=== PATIENT | female | born 1990 | race Caucasian/White ===

== ENCOUNTER 2016-07-09 20:04 | Emergency (ER) | payer OTHER ==
[~2016-07-09] VITALS: Ht 170.2 cm; Wt 109.1 kg
[2016-07-09 20:15] VITALS: BP 124/84; PULSE 123; RESP 20; O2SAT 97
--- NOTE | 2016-07-09 22:15 | ED.REPORT ---
HPI- Female Date of Service Jul 09, 2016 ED Provider: Dr. Daniel Pt is a 27 week 26 y/o female w/ a hx of A1, Bartholin's cyst, presenting to the ED c/o worsening left labial pain secondary to Bartholin's cyst onset 2 days ago. She was cleared at the [facility] prior to arrival to the ED. She denies vaginal bleeding, abdominal pain, N/V/D, fever, chills. Her has been uncomplicated thus far. Nursing Notes Stated Complaint: VAGINAL PAIN Chief Complaint: Skin Rash/Abscess Nursing Notes Reviewed: Yes Allergies: Coded Allergies: methocarbamol (Verified Allergy, Intermediate, Rash,Itching,SOB, 07/09/16) No Active Prescriptions or Reported Meds General Time Seen by MD: 22:15 Chief Complaint Pelvic pain Hx Obtained From: Patient Arrived By: Walk-in Sudden in Onset?: No Onset Occurred: 2 days ago Symptom Duration: Since onset Location: : Vulva left Quality: Painful Radiation: Does not radiate Severity: Current: Severe Severity: Maximum: Severe : 4 Para: 2 Abortions: 1 Similar Sx Previous: Yes Past Medical History Past Medical History Ab1 bartholin's cyst substance abuse Reports: Diabetes mellitus Past Surgical History Breast reduction Smoking History Current Every Day Smoker Social History Alcohol Use: "Social" Drug Use: Meth Other Social History: Good social support Ambulatory Status Independent Review of Systems Constitutional: Denies: Chills, Fever GI: Denies: Abdominal pain, Nausea, Vomiting Female: Reports: Pelvic pain, , Denies: Dysuria, Vaginal bleeding - abnl Musculoskeletal: Denies: Back pain, Extremity pain Complete sys rev & neg: except as marked. Physical Exam Initial Vital Signs Vital Signs (First) Date Time Temp Pulse Resp B/P Pulse Ox O2 Delivery O2 Flow Rate FiO2 07/09/16 20:15 36.0 123 20 124/84 97 Room Air Initial VS: Reviewed Head / Eyes: Atraumatic, Normocephalic, PERRL ENT: Mucous membranes moist, Conjunctiva normal, No scleral icterus Neck: Supple, Full range of motion Respiratory: Breath sounds normal, Clear to auscultation, No respiratory distress Abdomen / GI: Soft, Non-tender, No guarding, No rebound, No distention Extremities: Vascular intact, Neuro intact, No swelling, No tenderness Skin: Warm, Dry, No cyanosis Neurologic: Alert, Oriented, Nonfocal Psychiatric: Mood/affect normal, Behavior normal, Normal thought content Female Genitourinary: Warehouse Clerk present, Atraumatic Large left Bartholin's labial cyst 3x4 inches, very tender to touch Cardiovascular: Regular rhythm, Heart sounds NL, No gallop, No murmurs, No rubs , Cap refill not delayed, Peripheral circulation NL Heart Rate / Rhythm: Positive: Tachycardia Interpretation & Diagnostics Lab Results Interpretation Test 07/09/16 22:46 Hold Purple Top Tube Received (Received) Hold Blue Top Tube Received (Received) Hold Mobile Top Tube Received (Received) Hold Rasheed Top Tube Received (Received) Procedures Incision & Drainage Abscess I & D Abscess: She would not tolerate packing placement Time: 11:20 Procedure Performed by: ED physician Consent / Setup / Site Prep: Consent from patient, Time-out performed, Hand hygiene observed, Stand sterile technique, Sterile drapes applied Location of Abscess: Left labia Skin Preparation Agent: Shurclens Local Anesthesia: Lidocaine 1% Procedural Sedation/Analgesia: Analgesia: Dilaudid Pus Drained: Large (30 ccs), Purulent discharge Irrigation: Yes, Copious Post-Procedure / Complications: Dressing applied, No complications, Condition improved, Tolerated procedure well, Patient stable Re-Eval/Medical Decision Med Decision/Clinical Course I initially consulted with her sheep farm worker client relations associate. She told me that our anesthesiologist will not do a sedation for this procedure area there would recommend transfer her to [place] for this. I discussed this with Ciera. She wanted nothing to do with that. She opted to have the abscess drained under local anesthesia which is what OB recommended anyways. I perform this without any difficulty whatsoever. A large amount of pus drained after which Ciera is completely pain-free. She did not however allow me to place a packing. I counseled again with OB. She recommends Tuesday follow-up. No antibiotics. Evidently Ciera started been up at labor and delivery and was evaluated. OB did not recommend that she comes back up rather they recommended that I discharge her. Source of Hx: Old records Re-Evaluation/Progress #1: Time of Eval: 22:45 Re-Evaluation/Progress Note: She consents to I&D in the ED today. Re-Evaluation/Progress #2: Time of Eval: 23:25 Re-Evaluation/Progress Note: Pt rechecked. Informed pt of plan for treatment. Pt understands and agrees with plan for treatment. F/U and RTER warnings given. All questions addressed. Consultation : Referral / Consult Name: Melly Underwood MD Call Returned at: 22:30 Transformer Mechanic: Agrees with eval, Agrees with plan Note: Consulted OPTOMETRIST OWNER. He states that our anesthesiologist's have made it apparent to her that they would recommend her to go to [place] to be sedated. 11:23 - Agrees with plan for dc NOT on abx. Recommends pain meds. Counseled Regarding: Diagnosis, Lab results, Need for follow-up, When/why to return to ED Discharge & Departure Impression: Primary Impression: Labial abscess Additional Impression: Bartholin cyst Disposition: Home Discharge Condition All VS Reviewed: Yes Condition: Stable Patient Instructions: Excision of a Bartholin's Cyst (ED) Additional Instructions: Warm soaks if intolerable helps keep the abscess draining. You may take one [place] every 6 hours as needed for severe pain. I would like this to be followed up with on Tuesday by your computer applications instructor. Return to the emergency department if you have any problems or any worsening symptoms. Return if you have any signs or symptoms consistent with labor. Do not drive or drink alcohol or consume acetaminophen tonight or while while taking the [place]. Do not hesitate to return for any problems or any worsening symptoms. Referrals: [facility] (PCP) Rafiq Ramos DPM Attestation Portions of this note were transcribed by Tano Jacobs. I, Dr. Daniel personally performed the history, physical exam and medical decision-making; I reviewed and confirmed the accuracy of the information in the transcribed note. Signed by Brian Diaz, 07/09/16 - [id number] copies to: [facility]; Rafiq Ramos DPM, Todd P DO Jul 09, 2016 22:15 TANO JACOBS Jul 09, 2016 22:49
[2016-07-09] MEDS: HYDROmorphone 0.5 mg/0.5 mL iSecure Syringe IVPUSH PRN ×2 (22:51→23:15)
[2016-07-09] MEDS ORDERED: _HYDROcodone/APAP 5-325 mg Tablet PO PRN (23:25)
[2016-07-09 23:56] VITALS: BP 122/78; PULSE 99; RESP 18; O2SAT 98
== END 2016-07-09 23:57 | disposition home or self-care (01) ==
LOC: SED 20:04
DX: O34.82 Maternal care for other abnormalities of pelvic organs, second trimester (principal); N76.4 Abscess of vulva; N75.0 Cyst of Bartholin's gland; O99.332 Smoking (tobacco) complicating pregnancy, second trimester; Z3A.27 27 weeks gestation of pregnancy; Z88.8 Allergy status to other drugs, medicaments and biological substances
CPT/HCPCS: 56420; 96374; 96376; 99284; J1170

== ENCOUNTER 2016-07-15 01:43 | Emergency (ER) | payer OTHER ==
[2016-07-15 01:47] VITALS: BP 92/65; PULSE 121; RESP 16; O2SAT 97
[2016-07-15] MEDS ORDERED: cefTRIAXone Inj 1,000 MG, Lidocaine PF 1% Inj 2.1 ML in Syringe 0 EACH IM ONE (02:20)
[2016-07-15] MEDS ORDERED: HYDROmorphone 1 mg/mL Inj IM ONE (02:20)
--- NOTE | 2016-07-15 02:29 | ED.REPORT ---
HPI- Female Date of Service Jul 15, 2016 ED Provider: Alen Patel MD A 28 week 26 year old female with a history of bartholin cyst and substance abuse presents to the ED complaining of severe right flank back pain. Per nurse note, patient reports dysuria and last used meth 2 days ago. Nursing Notes Stated Complaint: POSS UTI Chief Complaint: Female Abdominal Pain Nursing Notes Reviewed: Yes Allergies: Coded Allergies: methocarbamol (Verified Allergy, Intermediate, Rash,Itching,SOB, 07/15/16) No Active Prescriptions or Reported Meds General Time Seen by MD: 01:54 Chief Complaint Flank pain right Hx Obtained From: Patient Arrived By: Walk-in Sudden in Onset?: Yes Onset Occurred: Onset unknown (within last few days) Symptom Duration: Since onset Severity: Current: Severe Severity: Maximum: Severe Recent Healthcare: Recent doctor visit Similar Sx Previous: No Past Medical History Past Medical History Ab1 bartholin's cyst substance abuse Patient was seen in ED on 07/09/2016 for left labial pain secondary to Bartholin's cyst. Reports: Diabetes mellitus (gestational) Past Surgical History Breast reduction. Bartholin cyst surgery. Smoking History Current Every Day Smoker Social History Patient is in [facility]. Patient last used IV drugs 18 months ago. Patient denies heroin use. Alcohol Use: "Social" Drug Use: Meth Other Social History: Good social support Ambulatory Status Independent Review of Systems Constitutional: Denies: Chills Female: Reports: Dysuria, Musculoskeletal: Reports: Back pain (right flank) Complete sys rev & neg: except as marked. Physical Exam Physical Exam Notes: Initial Vital Signs Vital Signs (First) Date Time Temp Pulse Resp B/P Pulse Ox O2 Delivery O2 Flow Rate FiO2 07/15/16 01:47 36.6 121 16 92/65 97 Initial VS: Reviewed, Vital signs abnormal Female Genitourinary: Exam deferred General/Constitutional: Awake, Alert Patient is screaming and crying. Respiratory / Chest: Atraumatic, Breath sounds NL, Breath sounds = bilat, No respiratory distress, No rales, No rhonchi, No wheezing Cardiovascular: Regular rhythm, Heart sounds NL, No gallop, No murmurs, No rubs Heart Rate / Rhythm: Positive: Tachycardia Abdomen: Soft, Non-tender Right sided CVA tenderness, extreme. Skin: Color NL, Warm, Dry Does not appear to have any active injection sites. Does appear to have some old scarring. Head / Eyes: Normocephalic, PERRL, EOMI ENT: Atraumatic, Airway patent Upper Extremity / MS: No swelling, No edema Neurologic: Oriented X3, Speech NL Re-Eval/Medical Decision Med Decision/Clinical Course Any 6-year-old female at about 5 months . She is a methamphetamine abuser. She complains of left flank pain and her urine shows a urinary tract infection. She has very limited IV access so requested IM medications. She was given Dilaudid 2 mg IM to be followed by Rocephin 2 g IV M but she refused the latter medication. She was given Keflex by mouth prepack and discharged home. She will follow up with her primary doctor. Source of Hx: Old records Re-Evaluation/Progress : Time of Eval: 02:17 Re-Evaluation/Progress Note: Rechecked patient. Explained plan to administer pain medication and antibiotics. Explained plan for discharge. Patient understands and agrees with the plan. Counseled Regarding: Diagnosis, Lab results, Need for follow-up, When/why to return to ED Discharge & Departure Impression: Primary Impression: UTI (urinary tract infection) Additional Impressions: Methamphetamine abuse Disposition: Home Discharge Condition All VS Reviewed: Yes Condition: No Change Patient Instructions: Urinary Tract Infection in Women (ED) Additional Instructions: Cephalexin 500 mg 3 times a day, #30 dispensed. Plenty fluids and primary juice. Follow-up with your regular doctor in a day or 2 for reevaluation. Do not use methamphetamine. Follow up as planned with [facility]. Referrals: [facility] (PCP) Brian Attestation Portions of this note were transcribed by Cy Beebe. I, Dr. Patel personally performed the history, physical exam and medical decision-making; I reviewed and confirmed the accuracy of the information in the transcribed note. Signed by: Brian Carr, 07/15/2016 [id number]. copies to: [facility] Howard L MD Jul 15, 2016 02:29 Cy Beebe Jul 15, 2016 02:30
[2016-07-15] MEDS ORDERED: CeFAZolin Inj 2 GM in Dextrose 5%-Pha MIX 50 ML IV ONE (02:30)
[2016-07-15] MEDS ORDERED: cefTRIAXone Inj 2,000 MG, Lidocaine PF 1% Inj 4.2 ML in Syringe 0 EACH IM ONE (02:45)
[2016-07-15] MEDS ORDERED: _Cephalexin 500 mg Capsule PO SCH (08:30)
== END 2016-07-15 03:15 | disposition home or self-care (01) ==
LOC: SED 01:43
DX: O23.43 Unspecified infection of urinary tract in pregnancy, third trimester (principal); O99.323 Drug use complicating pregnancy, third trimester; F15.10 Other stimulant abuse, uncomplicated; F17.200 Nicotine dependence, unspecified, uncomplicated; Z3A.28 28 weeks gestation of pregnancy; Z86.32 Personal history of gestational diabetes; Z87.42 Personal history of other diseases of the female genital tract; Z88.8 Allergy status to other drugs, medicaments and biological substances
CPT/HCPCS: 96372; 99283; J1170

== ENCOUNTER 2016-09-26 17:29 | Inpatient (IN) | payer OTHER ==
[~2016-09-26] VITALS: Ht 170.2 cm; Wt 124.7 kg
--- NOTE | 2016-09-26 20:27 | DRSVH ---
PROCEDURE: US OB BIOPHYSICAL PROFILE AND UMBILICAL DOPPLER INDICATIONS: LIMITED CARE HIGH RISK OUTSIDE/PRIOR DATING DATA: Last menstrual period (LMP): Unknown. LMP-based estimated date of delivery (KIMANI): Unknown. First dating scan (date and location): 03/14/16. Estimated date of delivery (KIMANI) from first dating scan: 10/05/16. TECHNIQUE: Real-time scanning was performed of the fetus for biophysical profile, with image documentation. Col or and pulse Doppler interrogation was also performed of the umbilical artery near its insertion into the placenta. Endovaginal scanning: Not performed COMPARISON: None. FINDINGS: General: A single living intrauterine gestation is present. Presentation: Vertex. Placenta: Placental position is anterior, without previa. Amniotic fluid index: 9.3 cm, normal range is 5-24 cm. heart rate: 145 beats per minute. Estimated gestational age from initial scan: 30 weeks 5 days. Biophysical profile: Tone: 2 points. Movement: 2 points. Respiration: 2 points. Largest pocket of fluid: 2 points. 6.78 cm Umbilical artery Doppler: 1.74, 2.07, 1.67, within normal limits. chest, diaphragm, stomach and kidneys, urinary bladder are unremarkable IMPRESSION: Single living intrauterine fetus in vertex presentation. Normal ESAU. Normal biophysical profile. Normal cord Doppler examination. Dictated by: Derek Michel M.D. on 09/26/2016 at 20:18 Approved by: Derek Michel M.D. on 09/26/2016 at 20:25
[2016-09-26] MEDS ORDERED: Lactated Ringer's 1,000 ML IV PRN (22:04)
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
[2016-09-26] MEDS ORDERED: Oxytocin 30 Units/500 mL LR 30 UNITS in IV Premix 1 EACH IV PRN ×2 (22:05→23:45)
[2016-09-26] MEDS ORDERED: Sodium Chloride LOK Flush 10 mL Syringe IVFLUSH PRN (22:05)
[2016-09-26] MEDS ORDERED: Hemorrhage Kit, Post Partum XX ONE (22:05)
[2016-09-26] MEDS ORDERED: Ondansetron 2 mg/mL 2 mL Inj IVPUSH PRN (22:05)
[2016-09-26] MEDS ORDERED: Oxytocin 10 Unit/mL Inj IM PRN (22:05)
[2016-09-26] MEDS ORDERED: Penicillin G K Inj 5,000,000 UNITS in Dextrose 5% Minibag Plus 100 ML IV ONE (22:05)
[2016-09-26] MEDS ORDERED: Carboprost 250 mCg/mL Inj IM PRN (22:05)
[2016-09-26] MEDS ORDERED: fentaNYL-PF 50 mCg/mL 2 mL Inj IVPUSH PRN (22:05)
[2016-09-26] MEDS ORDERED: Methylergonovine 0.2 mg/mL Inj IM PRN (22:05)
[2016-09-26] MEDS ORDERED: Penicillin G K 5,000,000 Units Inj ONE (22:06)
[2016-09-26] MEDS ORDERED: DEXTROSE 5% IV ONE (22:08)
--- NOTE | 2016-09-27 00:23 | PCM.PNOBIP ---
Subjective Date of Service Sep 27, 2016 Subjective increasing pelvic pressure. Gastrointestinal: Good Appetite, No N/V Group B Strep Results: Positive Rubella: Non-Immune Blood Type: A Labs Laboratory Tests 09/26/16 22:06: Hold Purple Top Tube Received Exam Vital Signs Vital Signs Contraction frequency in minutes: MVUs: Vital Signs: VS reviewed, stable Heart Tracings Heart Tones Baseline 140 bpm Heart Rate Variability: Moderate Heart Rate Accelleration: Present Heart Rate Deceleration: Absent Heart Rate Category: I Tocometry/IUPC Contraction frequency in minutes: MVUs: Sterile Vaginal Exam Cervical Dilation: 6 cms Cervical Effacement: 60 % Station: -3 Exam Heart: Normal S1 General: Alert, Oriented X3 OB Intrapartum Assessment/Plan Assessment 26 Y at 38 w6d with KIMANI 10/05/16 by 10 w5d US. Active labor will start augmentaion and epidural. Ultrasound by [facility]: 09/15/16: EFW 3329 at 75%ile , AC 97%ile. Previous pregnancies records requested, pending. complicated with: 1. Limited/Late care , one care visit at 35 weeks. 2. Drug abuse: Amphetamine Last use ~ 2 months ago, Sharpi pen ink one pen per day. UDS positive for amphetamine 07/15, 08/25, 09/06. UDS negative 07/18, 09/08, , 09/13, 09/26. 3. Obesity BMI 43 4. H/O DM in previous , 1 hr DM screen WNL at 35 week. 5. H/O [place] in previous , induced at term. 6. Epilepsy , last seizure 2013, no meds. 7. Smoker 0.5-1 PPD. 8. Desires permanent sterilization consent was signed 09/03/16 (at 35 w3d) 9. Chlamydia positive at 35 weeks, treated 09/11/16, no current partner involve. Health department contacted previous partner. 10.Sister with scoliosis and brain aneurysm. Anatomy scan by [facility] limited at 37 weeks, WNL. 11. recurrent bartholin cyst. 12. No custody of any of her kids. 13. Rubella non-immune. 14. Poor historian. Dawson Aparicio MD Sep 27, 2016 00:23
[2016-09-27] MEDS ORDERED: Lactated Ringer's 500 ML IV ONE (00:24)
[2016-09-27] MEDS ORDERED: Atropine 1 mg/10 mL (Code) Syringe IVPUSH PRN (00:25)
[2016-09-27] MEDS ORDERED: fentaNYL 2 mCg/mL-Bupiv 0.125% 100 ML EPIDURAL SCH (00:25)
[2016-09-27] MEDS ORDERED: EPHEDrine Sulfate 50 mg/mL Inj IVPUSH PRN (00:25)
[2016-09-27] MEDS ORDERED: Ondansetron 2 mg/mL 2 mL Inj IVPUSH PRN (00:25)
--- NOTE | 2016-09-27 01:17 | PCM.HPANE ---
Patient Data Surgeon Admitting Provider:Dawson Aparicio MD Attending Provider:Dawson Aparicio MD Primary Care Physician:[facility] Other Provider: Reason for Visit Term Labor TERM LABOR Ht/WT & BMI Body Mass Index Allergies Coded Allergies: methocarbamol (Verified Allergy, Intermediate, Rash,Itching,SOB, 07/15/16) Past Anesthesia History Anesthesia History: Denies:: Abnormal Airway, Anesthesia Reactions, Difficult Intubation, Fam Anesthesia Reaction, Fam Malignant Hypertherm, Malignant Hyperthermia Diabetes History Hx Diabetes?: Yes (gestational ) Medications Hypertension Medication: No Home Meds Incl Beta Iris: No No Active Prescriptions or Reported Meds History History of ENT Problems?: No HEENT History: Denies:: Abnormal Airway Cataracts Difficult Intubation Dysphagia Glaucoma Hearing Problem Sinus Problem TMJ Denture Type: None Teeth Condition: Within Normal Limits Hx of Heart Problems?: No Cardiovascular History: Denies:: AICD Abdominal Aortic Aneurism Atrial Fibrillation Cardiac Surgery Chest Pain Congestive Heart Failure Coronary Artery Disease Edema Heart Murmur Hypertension Irregular Heartbeat Pacemaker Peripheral Vascular Rheumatic Fever Thrombophlebitis Valvular Heart Disease Hx of Respiratory Problem?: Yes Respiratory History: Positive for:: Asthma Denies:: Tuberculosis Hx Neurologic Problems?: Yes (history of back pain) Hx of GI Problems?: No Hx of Problems?: No Female Hx: Positive for:: Currently Hx Musculoskeletal Problems?: No Hx Surgeries?: Yes (breast reduction, barthlon cyst surgery ) Hx Diabetes: Yes (gestational ) Hx Alcohol Use: NoHx Substance Use: Yes (amphetamine ) Smoking Status: Current Every Day Smoker Have You Smoked inLast 12 mo: Yes Stop/Bang DAPHNEY Risk Assessment: Low Risk, <3 Yes Risk Assessment Category Category 1A: Patient has history of documented sleep apnea, and HAS NOT received any narcotic, sedative or anesthesia administration during this stay. Category 1B: Patient has history of documented sleep apnea, and HAS received any narcotic , sedative or anesthesia administration during this stay Category 2: Patient has SUSPECTED Obstructive Sleep Apnea, and HAS received any narcotic , sedative or anesthesia administration during this stay. Category 3: Patient has SUSPECTED Obstructive Sleep Apnea and HAS NOT received narcotic, sedative or anesthesia administration during this stay. Category 4: Outpatient in Procedural Areas with known sleep apnea or who screen positive for High Risk via the STOP/BANG questionnaire. Exam Exam General Appearance: Alert, Oriented X3 HEENT/AIRWAY: MP 2 Lungs: Clear to Auscultation, Normal Air Movement Heart: Normal S1 Meds/Labs/Diagnostics Admission Meds Current Medications Penicillin G Potassium/ Dextrose/Water (Pfizerpen Inj/ D5W Minibag Plus) 100 ml @ 240 mls/hr ONCE ONCE IV Last administered on 09/26/16 22:21; Start at 22:05; Stop 09/26/16 at 22:29; Status DC Nicotine (Nicoderm 21 mg/ 24 Hr Patch) 1 patch DAILY TOPICAL Last administered on 09/27/16 00:22; Start 09/26/16 at 22:15 Labs Test 09/26/16 22:06 Hold Purple Top Tube Received (Received) Plan Impression Patient chart reviewed, patient interviewed and anesthestic plan with risks, benefits, and alternatives discussed, and informed consent obtained. NPO per Anesth. Guidelines: Yes ASA Physical Status: ASA3 Severe Disease Anesthetic Plan: Epidural Bene/Risks/Altern/Consents: Yes HP Complete Prior to Induction: Yes Sal Carr MD Sep 27, 2016 00:26
[2016-09-27] MEDS: Lactated Ringer's 1,000 ML IV SCH ×8 (01:38→17:16)
[2016-09-27] MEDS: Penicillin G K Inj 3,000,000 UNITS in IV Premix 1 EACH IV SCH ×5 (02:14→18:30)
[2016-09-27 06:03] LABS: Mean Corpuscular Hemoglobin 24.9 pg (27.0-35.0); Mean Corpuscular Volume 78.1 fL (81-100)
[2016-09-27] MEDS: Sodium Chloride LOK Flush 10 mL Syringe IVFLUSH SCH ×4 (07:30→19:36)
[2016-09-27] MEDS ORDERED: LANOlin HPA 7 Gm Ointment TOPICAL PRN (09:20)
[2016-09-27] MEDS ORDERED: Hemorrhage Kit, Post Partum XX ONE (09:20)
[2016-09-27] MEDS ORDERED: Carboprost 250 mCg/mL Inj IM PRN (09:20)
[2016-09-27] MEDS ORDERED: Witch Hazel-Glycerin Pads TOPICAL PRN (09:20)
[2016-09-27] MEDS ORDERED: Methylergonovine 0.2 mg/mL Inj IM PRN (09:20)
[2016-09-27] MEDS ORDERED: oxyCODONE-Acetamin 5-325 mg Tablet PO PRN (09:20)
[2016-09-27] MEDS ORDERED: Oxytocin 10 Unit/mL Inj IM PRN (09:20)
[2016-09-27] MEDS ORDERED: Oxytocin 30 Units/500 mL LR 30 UNITS in IV Premix 1 EACH IV PRN (09:20)
[2016-09-27] MEDS ORDERED: Benzocaine (Dermoplast) 20% 60 Gm Spray TOPICAL PRN (09:20)
--- NOTE | 2016-09-27 10:36 | OP ---
[address] [address] OPERATIVE REPORT PATIENT: HARSH SERRANO : 1990 MR#: [id number] ADMIT: 09/26/2016 JOB ID: [id number] DATE OF SURGERY: 09/27/2016 PREOPERATIVE DIAGNOSIS(ES): 1. Intrauterine at 38 weeks and 6 days. 2. Spontaneous labor. 3. Limited and late care. 4. Drug abuse during the . 5. Obesity, BMI of 43. 6. Epilepsy. 7. A smoker. 8. Previous history of diabetes in a . 9. Previous history of preeclampsia in . 10. Chlamydia positive during current . 11. Rubella nonimmune. 12. Poor historian. 13. Initially desired permanent sterilization. Consent was signed on September 03, 2016, but when re-counseled during admission, the patient changed her mind and desires Mirena intrauterine device for control. POSTOPERATIVE DIAGNOSIS(ES): 1. Intrauterine at 38 weeks and 6 days. 2. Spontaneous labor. 3. Limited and late care. 4. Drug abuse during the . 5. Obesity, BMI of 43. 6. Epilepsy. 7. A smoker. 8. Previous history of diabetes in a . 9. Previous history of preeclampsia in . 10. Chlamydia positive during current . 11. Rubella nonimmune. 12. Poor historian. 13. Initially desired permanent sterilization. Consent was signed on September 03, 2016, but when re-counseled during admission, the patient changed her mind and desires Mirena intrauterine device for control. 14. Status post normal vaginal delivery. SURGEON: Dawson Aparicio MD COMPLICATIONS: None. OUTCOME: Male infant, 3825 g, Apgars 8 and 8 at one and five minutes, respectively. Clear amniotic fluid. No nuchal cords. Shoulders delivered without difficulty. Placenta delivered intact with three-vessel cord. PROCEDURE: This is a 26-year-old, 8 para 3-0-4-3, who presented in active labor. Cervix on admission was 1-2 cm, 60% effaced, -2. The patient progressed in labor spontaneously to 5 cm, 60%, and -3. Then, there was protracted labor. Cervix remained at 6 cm, 60% effaced and -3 for 4 hours. Pitocin was started for augmentation, then artificial rupture of membrane was performed when the cervix was 7 cm, 90% effaced. Approximately 1 hour later, the patient delivered a male infant in cephalic presentation, right occiput anterior position with no nuchal cord. Shoulders delivered without difficulty. The infant was placed on the maternal abdomen. Delayed cord clamping was performed after 1 minute. Cord segment was obtained for gases. Cord blood was obtained for typing. Placenta was delivered spontaneously intact with three-vessel cord. Fundal massage was performed. Pitocin was started before the delivery of the placenta. The perineum was examined. No lacerations. Fundus was firm. Bleeding was minimal at the end of the procedure. ESTIMATED BLOOD LOSS: 400 mL, and 800 mcg of Cytotec (misoprostol was placed rectally prophylactically for hemorrhage). INSTRUMENT, NEEDLE AND SPONGE COUNTS: All instrument, needle, and sponge were correct x2. Mother and infant recovering in the delivery room, and in stable condition. IDawson MD, was present and scrubbed for the entire procedure.
--- NOTE | 2016-09-27 10:47 | NUR ---
Social Work Note - Family Assessment Ciera Houston is a 26 yr old who delivered baby boy Darrell Neal today. FOB is Nakia June. Reason for ARCHITECTURAL INTERN consult: Pt has had three previous children - none of which are in her care. CPS was involved in her children's care planning. ARCHITECTURAL INTERN met with Ciera - Ciera states that she has a 9 yr old Yazan and a 7 yr old Abena who are living with their father. She also has an 18 month old Mac who was placed into care after he was born. She states she wants to parent this child. She states that she has not been recently working with CPS - has been working with [employer] - Parent-child assistance program who has been helping her get ready for baby at home. Pt's address is listed as in [place] - Pt states she is living with a friend in [place] - [place]. Pt states that [place] will let her stay there with the baby. CPS lists her as homeless. Substance use: Pt states that she used to do drugs - states that she stopped two months ago - UDS in clinic +Amphetamines in August 2016. Pt states she is not enrolled in treatment - stopped drugs on her own. Mental Health: Pt denies any mental health issues. Source of income: Pt gets TANF and WIC/food stamps. Not working at this time - no support from FOB. DV: Pt denies any hx of domestic violence. Supports: Pt states that her room mate [place] is a good support as is her friend Krystal. She does not identify any family at this time. Involvement: Pt states that [employer] is involved in helping her get ready for baby at home - they help her get to appointments, supplies for the baby. Assessment: Pt with recent hx of drug use - delivered baby boy today. Requires CPS referral. Plan:; ARCHITECTURAL INTERN explained to MOB that CPS will be contacted to make sure that home and baby are safe and that MOB has resources to ensure abstaining from drug use. MOB verbalized understanding. ARCHITECTURAL INTERN called CPS - made report to Ronal Samson who will assign referral with CPS. CPS will be in contact with the hospital. ARCHITECTURAL INTERN updated RN and will continue to follow. DEANNA Monreal
--- NOTE | 2016-09-27 12:55 | NUR ---
Social work Note SAP CONSULTANT received call from Pamela Melina [phone] who states that she is the CPS worker assigned to [facility]. Pamela will come to the hospital today at 2:30 and will begin investigation. Pamela asked that the baby have a hold until Tuesday09/29/16 - CPS will be in contact about the plan of care. SAP CONSULTANT discussed with RN who will talk with the play therapist about hold on the baby. SAP CONSULTANT will continue to follow. DEANNA Monreal
[2016-09-27] MEDS ORDERED: Measles-Mumps-Rubella Vaccine 0.5 mL Inj SUBQ ONE (14:35)
[2016-09-27] MEDS: Ascorbic Acid 500 mg Tablet PO SCH (19:34)
--- NOTE | 2016-09-28 02:25 | PCM.ANEP1 ---
Post Anesthesia PACU Phase 1 Assessment Anesthetic Administered: Epidural Level of Alertness: Awake, talking MERRILL's with Equal Strength: Yes Pain: No Pain Scale Score: 4 Nausea or Vomiting: No CV Function & Hydration Stable: Yes Airway Device: na Oxygen Delivery: Room Air Lungs: Clear to Auscultation, Normal Air Movement Dermatome Level: Full Sensation PACU Phase 2 Assessment Complications: No Follow up Care: N/A Patient Instructions Provided: N/A Sal Valdez MD Sep 28, 2016 02:25
[2016-09-28 05:56] LABS: Mean Corpuscular Hemoglobin 25.3 pg (27.0-35.0); Mean Corpuscular Volume 78.3 fL (81-100)
[2016-09-28] MEDS: Ascorbic Acid 500 mg Tablet PO SCH (08:42)
[2016-09-28 11:18] VITALS: BP 126/83; PULSE 97; RESP 16
--- NOTE | 2016-09-28 11:56 | PCM.DIOB ---
Obstetrical Disch Instruction Date of Service: Sep 28, 2016 Dates of Hospitalization Date of Hospital Admission Sep 26, 2016 at 21:42 Providers Admitting Physician: Dawson Aparicio MD Primary Care Physician: Tarik De La Cruz-Usha Castillo Attending Physician: Dawson Aparicio MD Discharge Diagnosis Discharge Diagnosis Status post normal vaginal delivery Post Operative diagnosis Status post normal vaginal delivery Problems: Diet Discharge Diet: No restrictions Activity Discharge Activity-General: Pelvic Rest for 6 weeks (no sex, tampon or douching ), No lifting >15 pounds for 2 weeks, No lifting >10 pounds for 4-6 weeks Dressing and Incisional Care Hygiene: May shower, Perineal care, Sitz bath, Dermoplast spray Follow Up Plan Follow-up Provider (F9): Dawson Aparicio MD Follow-up appointment: Weeks (1-2) Call your provider for: Fever or Chills, Shortness of breath, Heavy vaginal bleeding, Heavy bleeding, Epigastric pain, Excessive constipation, Vaginal discomfort, Red painful breasts, Other (headache, change in vision, nausea/ vomiting, leg swelling, pain or change in color.) Dawson Aparicio MD Sep 28, 2016 11:56
[2016-09-28] MEDS ORDERED: FERR-74 PO (11:59)
[2016-09-28] MEDS ORDERED: DOCU-41 PO (11:59)
[2016-09-28] MEDS ORDERED: Ascorbic Acid PO (11:59)
[2016-09-28] MEDS ORDERED: IBUP-1827 PO (11:59)
--- NOTE | 2016-09-28 12:05 | PCM.DC.OB ---
Obstetrical Discharge Summary Date of Service Sep 28, 2016 Date of hospital admission Sep 26, 2016 at 21:42 Date of Discharge: Sep 28, 2016 Providers Admitting Physician: Devonte Massey MD Primary Care Physician: [facility] Dorothy-Usha Castillo Attending Physician: Devonte Massey MD Diagnosis at Time of Discharge S/P Anemia Problems: (1) Spontaneous vaginal delivery Onset Date: 01/21/2015 Status: Acute ICD Code: O80 (2) Anemia Qualifiers: Anemia type: iron deficiency Status: Acute ICD Code: D64.9 Hospital Course: 26 Y presented at 38 w5d with KIMANI 10/05/16 by 10 w5d US with active labor. Cervix was 2 cm at presentation and progressed spontaneously to 5 cm. After augmentation with oxytocin and AROM , patient delivered 06/27/16 via without complications, see delivery note for details. Outcome: Male infant, 3825 g, Apgars 8 and 8 at one and five minutes, respectively. Clear amniotic fluid. No nuchal cords. Shoulders delivered without difficulty. Placenta delivered intact with three-vessel cord. complicated with: 1. Limited/Late care , one care visit at 35 weeks. 2. Drug abuse: Amphetamine Last use ~ 2 months ago, Sharpi pen ink one pen per day. UDS positive for amphetamine 07/15, 08/25, 09/06. UDS negative 07/18, 09/08, , 09/13, 09/26. 3. Obesity BMI 43 4. H/O DM in previous , 1 hr DM screen WNL at 35 week. 5. H/O [place] in previous , induced at term. 6. Epilepsy , last seizure 2013, no meds. 7. Smoker 0.5-1 PPD. 8. Desires permanent sterilization consent was signed 09/03/16 (at 35 w3d), after delivery patient changed her mind and desires Mirena IUD instead at 8 weeks and will receive depo provera at 1-2 weeks visit. 9. Chlamydia positive at 35 weeks, treated 09/11/16, no current partner involve. Health department contacted previous partner. 10.Sister with scoliosis and brain aneurysm. Anatomy scan by [facility] limited at 37 weeks, WNL. 11. recurrent bartholin cyst. 12. No custody of any of her kids. 13. Rubella non-immune. Labs: Maternal Blood Type: A Antibody Screen: negative Group B Strep Results: Positive Rubella: Non-Immune Additional Information Hgb A1c 5.5 at 35 weeks. 1 hr DM screen (90) WNl at 35 weeks. HepB sAg Negative RPR Non-reactive HIV Non-reactive Laboratory Tests 72 Hours Test 09/26/16 22:06 09/27/16 00:30 09/27/16 05:33 09/28/16 05:40 Hold Purple Top Tube Received (Received) Urine Random Creatinine 178mg/dL (16-392) Urine Random Total Protein 22mg/dL (0-15) Urine Protein/Creatinine Ratio 0.12 (0-200) Hold Urine Received (Received) Urine Opiates Screen Negative Urine Methadone Screen Negative Urine Barbiturates Screen Negative Urine Amphetamines Screen Negative Urine Benzodiazepines Screen Negative Urine Cocaine Metabolite Screen Negative Urine Cannabinoids Screen Negative White Blood Count 10.7th/mm3 (3.8-10.1) 8.6th/mm3 (3.8-10.1) Red Blood Count 3.98mil/mm3 (3.90-5.20) 3.91mil/mm3 (3.90-5.20) Hemoglobin 9.9g/dL (12.0-15.6) 9.9g/dL (12.0-15.6) Hematocrit 31.1% (35.0-46.0) 30.6% (35.0-46.0) Mean Corpuscular Volume 78.1fL (81-100) 78.3fL (81-100) Mean Corpuscular Hemoglobin 24.9pg (27.0-35.0) 25.3pg (27.0-35.0) Mean Corpuscular Hemoglobin Concent 31.8% (32.0-37.0) 32.4% (32.0-37.0) Red Cell Distribution Width 14.4% (12.3-15.4) 14.5% (12.3-15.4) Platelet Count 285bil/L (150-400) 256bil/L (150-400) Hematology Comments Blood Urea Nitrogen 8mg/dL (6-20) Creatinine 0.45mg/dL (0.57-1.00) Uric Acid 3.8mg/dL (2.6-7.2) Aspartate Amino Transf (AST/SGOT) 11U/L (0-50) Alanine Aminotransferase (ALT/SGPT) 10U/L (0-32) Disposition: home. Discharge condition: stable. Diet Discharge Diet: No restrictions Activity Discharge Activity-General: Pelvic Rest for 6 weeks (no sex, tampon or douching ), No lifting >15 pounds for 2 weeks, No lifting >10 pounds for 4-6 weeks Dressing and Incisional Care Hygiene: May shower, Perineal care, Sitz bath, Dermoplast spray Follow Up Plan Follow-up Provider (F9): Devonte Massey MD Follow-up appointment: Weeks (1-2) Call your provider for: Fever or Chills, Shortness of breath, Heavy vaginal bleeding, Heavy bleeding, Epigastric pain, Excessive constipation, Vaginal discomfort, Red painful breasts, Other (headache, change in vision, nausea/ vomiting, leg swelling, pain or change in color.) ([Ascorbic Acid]) 500 MG TABLET 500 MG PO BIDWM Prescribed by: DEVONTE MASSEY MD Docusate Sodium (Colace) 100 Mg Capsule 100 MG PO DAILY PRN PRN For Constipation Prescribed by: DEVONTE MASSEY MD Ferrous Sulfate (Feosol) 325 Mg Tablet 325 MG PO BIDWM Prescribed by: DEVONTE MASSEY MD Ibuprofen (Ibuprofen) 600 Mg Tablet 600 MG PO QID PRN PRN For Pain Prescribed by: MD Markus MEDINA Omaima A MD Sep 28, 2016 12:05
[2016-09-28] MEDS ORDERED: MedroxyPROGESTERone 150 mg/mL Inj IM SCH (13:10)
--- NOTE | 2016-09-29 16:36 | PATH ---
SURGICAL PATHOLOGY Attending Physician:Dawson Aparicio CASE STATUS: Signed Out PATIENT NAME: HARSH SERRANO PID: [id number] : 1990 DATE COLLECTED:09/27/2016 00:00 SPECIMEN: Placenta CLINICAL HISTORY: DRUG EXPOSURE IN NO CARE 1). PLACENTA FINAL DIAGNOSIS: 1.BALLESTEROS PLACENTA: PLACENTA PARENCHYMA. WEIGHT 685 GRAMS. TWO FIBROUS NODULES (EACH 0.5 CM IN GREATEST DIMENSION). CHORIONIC VILLOUS MATURATION IS SLIGHTLY LESS MATURE THAN FOR STATED GESTATIONAL AGE. MILD TO MODERATE INTER- AND INTRAVILLOUS FIBRIN IS PRESENT. MILD, POSSIBLE VILLITIS PRESENT. UMBILICAL CORD LENGTH 2.0 CM. INSERTED 3.8 CM FROM THE PLACENTAL DISK MARGIN. THREE VESSELS PRESENT. FUNISITIS IS PRESENT. MEMBRANES RUPTURED 8.5 CM FROM THE PLACENTAL DISK MARGIN. MECONIUM STAINING PRESENT. CHORIOAMNIONITIS / DECIDUITIS IS PRESENT AND SCATTERED PLASMA CELLS ARE IDENTIFIED. NO DEFINITE VIRAL CYTOPATHIC EFFECT IDENTIFIED. ICD10 43.9 GROSS DESCRIPTION: The specimen is received in formalin, labeled with the patient's name and consists of an intact placenta and includes placental disc (685 g, 16.5 x 15.7 x 5.2 cm), umbilical cord (length-2.0 cm, diameter-1.5 x 1.1 cm) and membranes. The membranes are ruptured 8.5 cm from the free edge of the placenta and are semi-translucent. The umbilical cord is attached 3.8 cm from the edge of the placenta and contains 3 vessels. The surface is smooth and shiny with no evidence of meconium. The maternal surface is dark maroon with normal cotyledon formation. The placental disc is spongy and contains 2 yellow-orange solid rubbery fibrous nodules (each approximately 0.5 x 0.4 x 0.4) adjacent to each other. No masses, hematomas, lesions or other nodules are identified. Section code: (A) edge of placenta with membranes; (B) umbilical cord; (C-E, F-H, I-K) placenta, 3 trisected full thickness sections. 09/28/16 JM MICRO DESCRIPTION: See diagnosis. ICD-9 CODES: CPT CODES: 1: 70370 Electronically Signed Out Ashley Espinosa MD [facility] Pathology [facility] [address], [place] [address] Technical component performed at [facility], [address], [place], [address]
== END 2016-09-28 14:25 | disposition home or self-care (01) | DRG 774 ==
LOC: FBCO 17:29 → FBC 21:42
PROVIDERS: ADMIT Obstetrics & Gynecology; ATTEND Obstetrics & Gynecology
PROC: 10E0XZZ Delivery of Products of Conception, External Approach (ICD-10-PCS; principal; 2016-09-27)
PROC: 10907ZC Drainage of Amniotic Fluid, Therapeutic from Products of Conception, Via Natural or Artificial Opening (ICD-10-PCS; 2016-09-27)
DX: O99.214 Obesity complicating childbirth (principal); O98.82 Other maternal infectious and parasitic diseases complicating childbirth; Z68.41 Body mass index [BMI] 40.0-44.9, adult; O99.324 Drug use complicating childbirth; O99.334 Smoking (tobacco) complicating childbirth; Z3A.38 38 weeks gestation of pregnancy; Z37.0 Single live birth; E66.9 Obesity, unspecified; F17.210 Nicotine dependence, cigarettes, uncomplicated